=== PATIENT | male | born 1980 | race Caucasian/White ===

== ENCOUNTER 2019-10-23 10:28 | Emergency (ER) | payer OTHER ==
[~2019-10-23] VITALS: Ht 193 cm; Wt 118.2 kg
[2019-10-23] MEDS ORDERED: ONDANSETRON ODT 4 MG TAB.RAPDIS PO ONE (10:45)
--- NOTE | 2019-10-23 10:46 | PHYS DOC ---
Past History Past Medical History: No Pertinent History Past Surgical History: No Surgical History Alcohol Use: None Adult General Chief Complaint Chief Complaint: NAUSEA/VOMITING/DIARRHEA HPI HPI Patient is a 39 yo m p/w cc of nausea and dizzy He's had nausea and loose stool since Monday multiple kids at home are sick with similar symptoms. No fever that he knows of but did have some chills earlier in the week. He really thought that he would be better but he still having the symptoms we decided to come to the emergency room for evaluation. Return to try to eat something about 30 minutes later he has a bowel movement that's kind of loose at all bit runny. They just lightheaded has not passed out. No pain no chest pain no abdominal pain Review of Systems Review of Systems Constitutional: Eyes: Denies change in visual acuity, redness, or eye pain [] HENT: Denies nasal congestion or sore throat [] Respiratory: Denies cough or shortness of breath [] Cardiovascular: No additional information not addressed in HPI [] Neurologic: Denies headache, focal weakness or sensory changes [] Endocrine: Denies polyuria or polydipsia [] All other systems were reviewed and found to be within normal limits, except as documented in this note. Current Medications Current Medications Current Medications Medications (Trade) Dose Ordered Sig/Samuel Start Time Stop Time Status Last Admin Dose Admin Ondansetron HCl (Zofran Odt) 4 mg 1X ONCE 10/23/19 10:45 10/23/19 10:46 UNV Allergies Allergies Allergies Coded Allergies Type Severity Reaction Last Updated Verified No Known Drug Allergies 10/23/19 No Physical Exam Physical Exam Constitutional: Well developed, well nourished, no acute distress, non-toxic appearance. [] HENT: Normocephalic, atraumatic, bilateral external ears normal, oropharynx moist, no oral exudates, nose normal. [] Eyes: PERRLA, EOMI, conjunctiva normal, no discharge. [] Neck: Normal range of motion, no tenderness, supple, no stridor. [] Cardiovascular:Heart rate regular rhythm, no murmur [] Lungs & Thorax: Bilateral breath sounds clear to auscultation [] Abdomen: Bowel sounds normal, soft, no tenderness, no masses, no pulsatile masses. [] Skin: Warm, dry, no erythema, no rash. [] Back: No tenderness, no CVA tenderness. [] Extremities: No tenderness, no cyanosis, no clubbing, ROM intact, no edema. [] Neurologic: Alert and oriented X 3, normal motor function, normal sensory function, no focal deficits noted. [] Psychologic: Affect normal, judgement normal, mood normal. [] Current Patient Data Vital Signs Vital Signs Date Time Temp Pulse Resp B/P (MAP) Pulse Ox O2 Delivery O2 Flow Rate FiO2 10/23/19 10:40 98.1 76 18 185/85 (118) 95 Room Air Lab Results tress Level Triage * None Temperature (Fahrenheit): * 98.1 degrees F (97.6-99.5) Patient Temperature * 98.1 degrees F (97.5-99.5) Temperature Source * Oral Pulse Rate * 76 beats per minute (60-90) Respiratory Rate * 18 breaths per minute (12-24) Oxygen Delivery Method * Room Air Bedside Pulse Oximetry * 95 % Blood Pressure Assessment Label 185/85 * Mean 118 Blood Pressure Systolic * 185 mm Hg (100-140) H Blood Pressure Diastolic * 85 mm Hg (60-100) Height (Feet) * 6 feet Height (Inches) * 4.00 inches Patient Height * 76 in Weight (Kilograms) * 118.2 kg Patient Weight we will recheck the blood pressure with larger cuff. EKG EKG [] Radiology/Procedures Radiology/Procedures [] Course & Med Decision Making Course & Med Decision Making Pertinent Labs and Imaging studies reviewed. (See chart for details) []Labs look normal blood pressure was better on recheck patient remained stable in the emergency room and was discharged with a prescription for Zofran presumed diagnosis viral gastroenteritis given vomiting and loose stool. Return impressions discussed no abdominal pain Dragon Disclaimer Dragon Disclaimer This electronic medical record was generated, in whole or in part, using a voice recognition dictation system. Departure Departure: Impression: Primary Impression: Nausea Disposition: 01 HOME, SELF-CARE Condition: STABLE Referrals: FLAQUITO HICKS DO, [facility] (PCP) Scripts Ondansetron (ONDANSETRON ODT) 4 Mg Tab.rapdis 1 TAB PO PRN Q6-8HRS PRN for NAUSEA/VOMITING, #16 TAB Prov: JARRED FALL MD 10/23/19 JARRED FALL MD Oct 23, 2019 10:46
[2019-10-23 10:50] VITALS: BP 153/93
[2019-10-23 11:08] LABS: BASO % 1 % (0-3); EOS # 0.1 x10^3/uL (0.0-0.7); EOS % 2 % (0-3); HEMOGLOBIN 15.7 g/dL (13.0-17.5); LYMPH # 1.9 x10^3/uL (1.0-4.8); LYMPH % 26 % (24-48); MEAN CORPUSCULAR HEMOGLOBIN 30 pg (25-35); MEAN CORPUSCULAR HGB CONC 34 g/dL (31-37); MEAN CORPUSCULAR VOLUME 90 fL (79-100); MONO # 0.5 x10^3/uL (0.0-1.1); MONO % 7 % (0-9); NEUT # 4.9 x10^3uL (1.8-7.7); NEUT % 65 % (31-73); PLATELET COUNT 283 x10^3/uL (140-400); RED BLOOD COUNT 5.21 x10^6/uL (4.30-5.70); RED CELL DISTRIBUTION WIDTH 12.8 % (11.5-14.5); WHITE BLOOD COUNT 7.5 x10^3/uL (4.0-11.0)
[2019-10-23 11:12] LABS: INFLUENZA A PATIENT NEGATIVE (NEGATIVE); INFLUENZA B PATIENT NEGATIVE (NEGATIVE)
[2019-10-23 11:16] LABS: CALCIUM 8.9 mg/dL (8.5-10.1); CREATININE 0.9 mg/dL (0.7-1.3); GFR 93.9; POTASSIUM 4.1 mmol/L (3.5-5.1)
[2019-10-23 11:20] LABS: ALBUMIN 4.1 g/dL (3.4-5.0); ALBUMIN/GLOBULIN RATIO 1.1 (1.0-1.7); TOTAL BILIRUBIN 0.5 mg/dL (0.2-1.0); TOTAL PROTEIN 7.8 g/dL (6.4-8.2)
[2019-10-23] MEDS ORDERED: ONDA4TAB12 PO (11:24)
== END 2019-10-23 11:29 | disposition home or self-care (01) ==
LOC: ER 10:28
DX: R11.0 Nausea (principal); R42 Dizziness and giddiness
CPT/HCPCS: 36415; 80053; 83690; 85025; 87804; 99283; Q0162

== ENCOUNTER 2019-11-26 16:57 | Emergency (ER) | payer OTHER ==
[~2019-11-26] VITALS: Ht 193 cm; Wt 127.1 kg
[2019-11-26 16:57] VITALS: BP 141/89
[~2019-11-26 16:57] MED LIST: ONDA4TAB12 PO
--- NOTE | 2019-11-26 17:34 | PHYS DOC ---
Past History Past Medical History: No Pertinent History Past Surgical History: No Surgical History Alcohol Use: None Adult General Chief Complaint Chief Complaint: FLU SYMPTOM HPI HPI Patient is a 39-year-old male who presents with complaint of flulike illness for the last several days. Patient states that he has had body aches and chills as well as subjective fever. Patient also states that he has a dry cough and some shortness of breath. He reports some nausea but is had no vomiting or diarrhea. He rates the body aches as moderate.[] Review of Systems Review of Systems Constitutional: Positive subjective fever and chills [] Eyes: Denies change in visual acuity, redness, or eye pain [] HENT: Positive congestion without sore throat [] Respiratory: Complains of cough and shortness of breath [] Cardiovascular: No additional information not addressed in HPI [] Integument: Denies rash or skin lesions [] Neurologic: Admits to headache without focal weakness or sensory changes [] All other systems were reviewed and found to be within normal limits, except as documented in this note. Allergies Allergies Allergies Coded Allergies Type Severity Reaction Last Updated Verified No Known Drug Allergies 10/23/19 No Physical Exam Physical Exam Constitutional: Well developed, well nourished, no acute distress, non-toxic ap pearance. [] HENT: Normocephalic, atraumatic, bilateral external ears normal, oropharynx moist, mild pharyngeal erythema is noted without exudates. [] Eyes: PERRLA, EOMI, conjunctiva normal, no discharge. [] Neck: Normal range of motion, no tenderness, supple. [] Cardiovascular: Regular rate and rhythm[] Lungs & Thorax: Bilateral breath sounds clear to auscultation [] Abdomen: Bowel sounds normal, soft, no tenderness. [] Skin: Warm, dry, no erythema, no rash. [] Extremities: No tenderness, no cyanosis, no clubbing, ROM intact, no edema. [] Current Patient Data Vital Signs Vital Signs Date Time Temp Pulse Resp B/P (MAP) Pulse Ox O2 Delivery O2 Flow Rate FiO2 11/26/19 16:57 98.6 95 18 141/89 (106) 100 Room Air EKG EKG [] Radiology/Procedures Radiology/Procedures [] Impressions: PROCEDURE: CHEST PA & LATERAL Two-view chest dated 11/26/2019. No comparison available. CLINICAL INDICATION: Cough and fever. FINDINGS: PA and lateral views obtained. Heart and mediastinal contours are within normal limits. Lungs are clear. No consolidation or pleural effusion. No pneumothorax. IMPRESSION: No acute radiographic abnormality. Electronically signed by: Vijay Paige MD (11/26/2019 5:33 PM) [id number] Course & Med Decision Making Course & Med Decision Making Pertinent Labs and Imaging studies reviewed. (See chart for details) [] Dragon Disclaimer Dragon Disclaimer This electronic medical record was generated, in whole or in part, using a voice recognition dictation system. Departure Departure: Impression: Primary Impression: Acute bronchitis Disposition: HOME, SELF-CARE Condition: STABLE Referrals: FLAQUITO HICKS DO, [facility] (PCP) Patient Instructions: Acute Bronchitis Scripts Azithromycin (ZITHROMAX) 250 Mg Tablet 1 PKG PO UD for infection, #6 TAB Prov: THAIS FLORES Jr. DO 11/26/19 Problem Qualifiers Primary Impression: Acute bronchitis Bronchitis organism: unspecified organism Qualified Codes: J20.9 - Acute bronchitis, unspecified THAIS FLORES Jr. DO Nov 26, 2019 17:34
[2019-11-26 17:50] LABS: INFLUENZA A PATIENT NEGATIVE (NEGATIVE); INFLUENZA B PATIENT NEGATIVE (NEGATIVE)
[2019-11-26] MEDS ORDERED: AZIT250T PO (17:55)
== END 2019-11-26 18:05 | disposition home or self-care (01) ==
LOC: ER 16:57
DX: J20.9 Acute bronchitis, unspecified (principal)
CPT/HCPCS: 71046; 87804; 99284

== ENCOUNTER 2019-11-28 22:53 | Emergency (ER) | payer OTHER ==
[~2019-11-28] VITALS: Ht 193 cm; Wt 127.1 kg
[~2019-11-28 22:53] MED LIST changes: +AZIT250T PO
--- NOTE | 2019-11-28 23:12 | PHYS DOC ---
Past History Past Medical History: No Pertinent History Past Surgical History: No Surgical History Alcohol Use: None Adult General Chief Complaint Chief Complaint: "... I ve been sick since monday... And Fever like and a Nonproductive Cough, Generalized Aches and Pain... But has doing pretty good Monday I even ran 6 miles... I was seen at [facility] and they started me on his Zithromax.... I haven't been outside the state overseas recently... I have been around people that have traveled TD to [place] but they are not sick HPI HPI Patient is a 39 year old male who presents with above hx and complaints of fev er, chills, malaise, arthralgia, myalgia, nonproductive cough, sore throat and congestion. Patient was given Zithromax course at [facility]. Patient states he had no improvement. Patient denies any history immunosuppression. Patient denies any travel. Patient denies any specific ill contacts. Has been in contact with individual who have traveled [facility] to [place] by [employer]. They had come to visit on approximately November 15. Visitors have no symptoms. Pt. does have similar flu like symptoms as pt. Both Pt. and were told to self isolate by [facility]. Patient did get flu vaccination this season.. Patient states he's been compliant with his Zithromax. Review of Systems Review of Systems Constitutional: Denies fever or chills [] Eyes: Denies change in visual acuity, redness, or eye pain [] HENT: Denies nasal congestion or sore throat [] Respiratory: Denies cough or shortness of breath [] Cardiovascular: No additional information not addressed in HPI [] GI: Denies abdominal pain, nausea, vomiting, bloody stools or diarrhea [] : Denies dysuria or hematuria [] Musculoskeletal: Denies back pain or joint pain [] Integument: Denies rash or skin lesions [] Neurologic: Denies headache, focal weakness or sensory changes [] Endocrine: Denies polyuria or polydipsia [] All other systems were reviewed and found to be within normal limits, except as documented in this note. Family History Family History has same symptoms Current Medications Current Medications See nursing for home meds Allergies Allergies Allergies Coded Allergies Type Severity Reaction Last Updated Verified No Known Drug Allergies 10/23/19 No Physical Exam Physical Exam Constitutional: Well developed, well nourished, reports moderate acute distress, non-toxic appearance. [] HENT: Normocephalic, atraumatic, bilateral external ears normal, oropharynx moist, no oral exudates, nose normal. [] Eyes: PERRLA, EOMI, conjunctiva normal, no discharge. [] Neck: Normal range of motion, no tenderness, supple, no stridor. [] Cardiovascular:Heart rate regular rhythm, no murmur [] Lungs & Thorax: Bilateral breath sounds with apex with few scattered wheezes on auscultation [] Abdomen: Bowel sounds normal, soft, no tenderness, no masses, no pulsatile masses. [] Skin: Warm, dry, no erythema, no rash. [] Back: No tenderness, no CVA tenderness. [] Extremities: No tenderness, no cyanosis, no clubbing, ROM intact, no edema. []No cording in legs Neurologic: Alert and oriented X 3, normal motor function, normal sensory function, no focal deficits noted. [] Psychologic: Affect anxious, judgement normal, mood normal. [] EKG EKG My interpretation EKG shows a sinus rhythm at 82 bpm. No findings acute STEMI with contralateral changes.[] Radiology/Procedures Radiology/Procedures [][place] [address] IMAGING REPORT Signed PATIENT: RUFINO CARDENAS ACCOUNT: [id number] : 1980 LOCATION: ER AGE: 39 SEX: M EXAM STATUS: PRE ER ORD. PHYSICIAN: REVA RIOS MD REASON: Dyspnea, cough, chest pressure PROCEDURE: CHEST PA & LATERAL Two-view chest dated 11/28/2019. Comparison made to 11/26/2019. CLINICAL INDICATION: Dyspnea and cough. FINDINGS: PA and lateral views obtained. Heart and mediastinal contours within normal limits. Lungs are clear. No consolidation or pleural effusion. No pneumothorax. IMPRESSION: No acute findings. Electronically signed by: Vijay Paige MD (11/28/2019 11:41 PM) [id number] DICTATED AND SIGNED BY: VIJAY PAIGE MD DATE: 11/28/19 0572 CC: REVA RIOS MD; FLAQU[facility] HICKS DO, [facility] ~ Course & Med Decision Making Course & Med Decision Making Pertinent Labs and Imaging studies reviewed. (See chart for details) Pt. to continue current Zithromax as directed. Use MDI two puffs four times a day . Take Prednisone 50 mg daily. Self isolated your self and close contacts ( family x 14 day) if contacts are high risks. Check CDC site for latest information on high risk areas because of concern for CO-19. Most areas in [place] high risk s areas were after 11/24/2019. Over seas Level #3 and above also since November 23, except [place] and [facility] area or Level #2. Follow up with Jerry. Return if any concerns. Impression: 1. Bronchitis 2. Viral Syndrome. [] Dragon Disclaimer Dragon Disclaimer This electronic medical record was generated, in whole or in part, using a voice recognition dictation system. Departure Departure: Disposition: 01 HOME/RESIDENCE PRIOR TO ADM Condition: STABLE Referrals: FLAQUITO HICKS DO, [facility] (PCP) Scripts Ondansetron Hcl (ZOFRAN) 8 Mg Tablet 8 MG PO QIDPRN PRN for active vomiting, #30 BOTTLE Prov: REVA RIOS MD 11/29/19 Ibuprofen (IBUPROFEN) 400 Mg Tablet 600 MG PO QIDPRN PRN for pain or fever, #120 TAB Prov: REVA RIOS MD 11/29/19 Acetaminophen (ACETAMINOPHEN) 500 Mg Tablet 1000 MG PO QIDPRN for fever or pain, #120 TAB Prov: REVA RIOS MD 11/29/19 Albuterol Sulfate (VENTOLIN HFA INHALER) 18 Gm Hfa.aer.ad 2 PUFF IH PRN Q4HRS PRN for FOR ASTHMA for 30 Days, INHALER 0 Refills Prov: REVA RIOS MD 11/29/19 Prednisone (PREDNISONE) 50 Mg Tablet 50 MG PO DAILY for reactive airway for 5 Days, #5 TAB Prov: REVA RIOS MD 11/29/19 Dragon Disclaimer This chart was dictated in whole or in part using Voice Recognition software in a busy, high-work load, and often noisy Emergency Department environment. It may contain unintended and wholly unrecognized errors or omissions. REVA RIOS MD Nov 28, 2019 23:12
[2019-11-28] MEDS ORDERED: IV RINGERS SOLUTION,LACTATED 1,000 ML IV SCH (23:15)
[2019-11-28] MEDS ORDERED: IPRATRPIUM/ALBUTEROL 0.5/2.5MG 3 ML NEBU. NEB ONE (23:30)
[2019-11-28] MEDS ORDERED: predniSONE 10 MG TABLET PO ONE (23:30)
--- NOTE | 2019-11-28 23:44 | RAD ---
Two-view chest dated 11/28/2019. Comparison made to 11/26/2019. CLINICAL INDICATION: Dyspnea and cough. FINDINGS: PA and lateral views obtained. Heart and mediastinal contours within normal limits. Lungs are clear. No consolidation or pleural effusion. No pneumothorax. IMPRESSION: No acute findings. Electronically signed by: Vijay Paige MD (11/28/2019 11:41 PM) [id number]
--- NOTE | 2019-11-28 23:47 | EKG ---
[address] [address] Test Date: 2019-11-28 Test Time: 23:33:57 Pat Name: RUFINO CARDENAS Department: Room: Gender: M [id number]: : 1980 Requested By: REVA RIOS Order Number: [id number] Reading MD: Measurements Intervals [place] Rate: 82 P: 48 [place]: 174 QRS: 54 QRSD: 92 T: 22 QT: 352 QTc: 414 Interpretive Statements SINUS RHYTHM NO SPECIFIC ECG ABNORMALITIES RI6.01 No previous ECG available for comparison
[2019-11-29 00:15] LABS: BASO # 0.1 x10^3/uL (0.0-0.2); BASO % 1 % (0-3); EOS # 0.1 x10^3/uL (0.0-0.7); EOS % 1 % (0-3); HEMATOCRIT 45.7 % (39.0-53.0); HEMOGLOBIN 15.5 g/dL (13.0-17.5); LYMPH # 1.7 x10^3/uL (1.0-4.8); LYMPH % 15 % (24-48); MEAN CORPUSCULAR HEMOGLOBIN 30 pg (25-35); MEAN CORPUSCULAR HGB CONC 34 g/dL (31-37); MEAN CORPUSCULAR VOLUME 90 fL (79-100); MONO # 0.7 x10^3/uL (0.0-1.1); MONO % 7 % (0-9); NEUT # 8.7 x10^3uL (1.8-7.7); NEUT % 77 % (31-73); PLATELET COUNT 258 x10^3/uL (140-400); RED BLOOD COUNT 5.09 x10^6/uL (4.30-5.70); RED CELL DISTRIBUTION WIDTH 12.6 % (11.5-14.5); WHITE BLOOD COUNT 11.3 x10^3/uL (4.0-11.0)
[2019-11-29 00:24] LABS: CREATININE 1.1 mg/dL (0.7-1.3); GFR 74.5; POTASSIUM 3.9 mmol/L (3.5-5.1)
[2019-11-29 00:32] LABS: INFLUENZA A PATIENT NEGATIVE (NEGATIVE); INFLUENZA B PATIENT NEGATIVE (NEGATIVE)
[2019-11-29 00:36] LABS: ALBUMIN 4.2 g/dL (3.4-5.0); DIRECT BILIRUBIN 0.1 mg/dL (0.0-0.2); MAGNESIUM 2.3 mg/dL (1.8-2.4); TOTAL BILIRUBIN 0.3 mg/dL (0.2-1.0); TOTAL PROTEIN 8.1 g/dL (6.4-8.2)
[2019-11-29 01:10] LABS: BACTERIA,URINE 0 /HPF (0-FEW); BILIRUBIN,URINE NEG (NEG); CLARITY,URINE CLEAR; COLOR,URINE YELLOW; GLUCOSE,URINE NEG (NEG); NITRITE,URINE NEG (NEG); RBC,URINE 0 /HPF (0-2); UROBILINOGEN,URINE 0.2 mg/dL (0.2 mg/dL); WBC,URINE 0 /HPF (0-4)
[2019-11-29 01:28] LABS: SEDIMENTATION RATE 5 (0-15)
[2019-11-29] MEDS ORDERED: ACET500T68 PO (02:20)
[2019-11-29] MEDS ORDERED: IBUP400T18 PO (02:20)
[2019-11-29] MEDS ORDERED: ALBU2.5V8 IH (02:20)
[2019-11-29] MEDS ORDERED: ONDA8TAB9 PO (02:20)
[2019-11-29] MEDS ORDERED: PRED50TA PO (02:20)
[2019-11-29 02:32] LABS: BGAS PH 7.43 (7.35-7.46)
[2019-11-29 02:45] VITALS: BP 142/76
== END 2019-11-29 03:31 | disposition home or self-care (01) ==
LOC: ER 22:53
DX: B34.9 Viral infection, unspecified (principal); J40 Bronchitis, not specified as acute or chronic
CPT/HCPCS: 36415; 36600; 71046; 80048; 80076; 81001; 82550; 82803; 83605; 83735; 83880; 84484; 85025; 85379; 85610; 85651; 85730; 87040; 87070; 87804; 87880; 93005; 94640; 99285; J7120; J7512

== ENCOUNTER 2019-12-01 20:26 | Emergency (ER) | payer OTHER ==
[~2019-12-01] VITALS: Ht 193 cm; Wt 127.1 kg
[~2019-12-01 20:26] MED LIST changes: +ACET500T68 PO; +ALBU2.5V8 IH; +IBUP400T18 PO; +ONDA8TAB9 PO; +PRED50TA PO
--- NOTE | 2019-12-01 20:33 | PHYS DOC ---
Past History Past Medical History: Bronchitis Past Surgical History: No Surgical History Alcohol Use: None Adult General Chief Complaint Chief Complaint: ".. . My and I were doing good... I really felt better today.. but tonight ... I feel short of breath again... " HPI HPI Patient is a 39 year old male who presents with above hx and complaints of dyspnea, nonproductive cough, sore throat, congestion, malaise, myalgia and arthralgia. Pt. seen in ED 10/23, 11/25 and 11/27 for bronchitis and viral symptoms. Pt. has been on a course of Zithromax , Prednisone and MDI albuterol. . Was doing fairly well and even ran 6 mile run on MondayNovember 24. Pt. Seen by me on 11/27- for dyspnea, cough, and felt to have a Viral Bronchitis. Pt. does have some possible remote risks of CO-19 with individual visiting who were TDY to [place] via [place]. has same symptoms. Review of Systems Review of Systems Constitutional: Denies fever or chills [] Eyes: Denies change in visual acuity, redness, or eye pain [] HENT: Denies nasal congestion or sore throat [] Respiratory: Complaints of cough and shortness of breath [] Cardiovascular: No additional information not addressed in HPI [] GI: Denies abdominal pain, nausea, vomiting, bloody stools or diarrhea [] : Denies dysuria or hematuria [] Musculoskeletal: Complaints of myalgia and malaise Integument: Denies rash or skin lesions [] Neurologic: Denies headache, focal weakness or sensory changes [] Endocrine: Denies polyuria or polydipsia [] All other systems were reviewed and found to be within normal limits, except as documented in this note. Family History Family History has same symptoms Current Medications Current Medications See nursing for home meds Allergies Allergies Allergies Coded Allergies Type Severity Reaction Last Updated Verified No Known Drug Allergies 10/23/19 No Physical Exam Physical Exam Constitutional: Well developed, well nourished, mild distress, non-toxic appearance. [] HENT: Normocephalic, atraumatic, bilateral external ears normal, oropharynx moist, no oral exudates, nose normal. [] Eyes: PERRLA, EOMI, conjunctiva normal, no discharge. [] Neck: Normal range of motion, no tenderness, supple, no stridor. [] Cardiovascular:Heart rate regular rhythm, no murmur [] Lungs & Thorax: Bilateral breath sounds equal at apex with very few scattered wheezes auscultation [] Abdomen: Bowel sounds normal, soft, no tenderness, no masses, no pulsatile masses. [] Skin: Warm, dry, no erythema, no rash. [] Back: No tenderness, no CVA tenderness. [] Extremities: No tenderness, no cyanosis, no clubbing, ROM intact, no edema. [] Neurologic: Alert and oriented X 3, normal motor function, normal sensory function, no focal deficits noted. [] Psychologic: Affect anxious, judgement normal, mood normal. [] EKG EKG My interpretation of EKG shows a sinus rhythm at 86 bpm. There is some movement artifact. But no findings acute STEMI of contralateral changes.[] Radiology/Procedures Radiology/Procedures [][place] [address] IMAGING REPORT Signed PATIENT: RUFINO CARDENAS ACCOUNT: [id number] : 1980 LOCATION: ER AGE: 39 SEX: M EXAM STATUS: REG ER ORD. PHYSICIAN: REVA RIOS MD REASON: dyspnea PROCEDURE: CHEST PA & LATERAL Exam: Chest 2 views INDICATION: Dyspnea TECHNIQUE: Frontal and lateral views the chest Comparisons: 11/28/2019 FINDINGS: The cardiomediastinal silhouette and pulmonary vessels are within normal limits. The lung and pleural spaces are clear. IMPRESSION: No acute cardiopulmonary process. Electronically signed by: Adrian Snow MD (12/01/2019 9:07 PM) [id number] DICTATED AND SIGNED BY: ADRIAN SNOW MD DATE: 12/01/19 2107 CC: REVA RIOS MD; FLAQUITO HICKS DO, [facility] ~ Course & Med Decision Making Course & Med Decision Making Pertinent Labs and Imaging studies reviewed. (See chart for details) Patient continue current meds. Patient continue MDI 2 puffs 4 times a day. Patient continue self isolation x 15 days. Patient follow-up primary care. Patient return if any concerns. Patient take Tylenol and ibuprofen as needed for discomfort. Impression- 1. Viral syndrome 2. Bronchitis [] Dragon Disclaimer Dragon Disclaimer This electronic medical record was generated, in whole or in part, using a voice recognition dictation system. Departure Departure: Disposition: 01 HOME/RESIDENCE PRIOR TO ADM Condition: STABLE Referrals: FLAQUITO HICKS DO, [facility] (PCP) Maggie Disclaimer This chart was dictated in whole or in part using Voice Recognition software in a busy, high-work load, and often noisy Emergency Department environment. It may contain unintended and wholly unrecognized errors or omissions. Dragon Disclaimer This chart was dictated in whole or in part using Voice Recognition software in a busy, high-work load, and often noisy Emergency Department environment. It may contain unintended and wholly unrecognized errors or omissions. REVA RIOS MD Dec 01, 2019 20:33
[2019-12-01] MEDS ORDERED: IV RINGERS SOLUTION,LACTATED 1,000 ML IV SCH (20:34)
[2019-12-01] MEDS ORDERED: ASPIRIN 81 MG TAB.CHEW PO ONE (20:45)
[2019-12-01] MEDS ORDERED: IPRATRPIUM/ALBUTEROL 0.5/2.5MG 3 ML NEBU. NEB ONE ×2 (20:45)
[2019-12-01 21:06] LABS: BASO % 0 % (0-3); EOS % 0 % (0-3); HEMATOCRIT 43.3 % (39.0-53.0); HEMOGLOBIN 14.6 g/dL (13.0-17.5); LYMPH # 1.2 x10^3/uL (1.0-4.8); LYMPH % 11 % (24-48); MEAN CORPUSCULAR HEMOGLOBIN 31 pg (25-35); MEAN CORPUSCULAR HGB CONC 34 g/dL (31-37); MEAN CORPUSCULAR VOLUME 91 fL (79-100); MONO # 0.3 x10^3/uL (0.0-1.1); MONO % 3 % (0-9); NEUT % 86 % (31-73); PLATELET COUNT 277 x10^3/uL (140-400); RED BLOOD COUNT 4.79 x10^6/uL (4.30-5.70); RED CELL DISTRIBUTION WIDTH 12.7 % (11.5-14.5); WHITE BLOOD COUNT 10.6 x10^3/uL (4.0-11.0)
--- NOTE | 2019-12-01 21:10 | RAD ---
Exam: Chest 2 views INDICATION: Dyspnea TECHNIQUE: Frontal and lateral views the chest Comparisons: 11/28/2019 FINDINGS: The cardiomediastinal silhouette and pulmonary vessels are within normal limits. The lung and pleural spaces are clear. IMPRESSION: No acute cardiopulmonary process. Electronically signed by: Adrian Deutsch MD (12/01/2019 9:07 PM) [id number]
[2019-12-01 21:11] LABS: CALCIUM 8.8 mg/dL (8.5-10.1); CREATININE 0.9 mg/dL (0.7-1.3); GFR 93.9; POTASSIUM 3.8 mmol/L (3.5-5.1)
[2019-12-01 21:24] LABS: ALBUMIN 4.1 g/dL (3.4-5.0); DIRECT BILIRUBIN 0.1 mg/dL (0.0-0.2); MAGNESIUM 2.2 mg/dL (1.8-2.4); TOTAL BILIRUBIN 0.4 mg/dL (0.2-1.0); TOTAL PROTEIN 7.8 g/dL (6.4-8.2)
[2019-12-01 21:25] LABS: BGAS PH 7.37 (7.35-7.46)
[2019-12-01 22:02] LABS: INFLUENZA A PATIENT NEGATIVE (NEGATIVE); INFLUENZA B PATIENT NEGATIVE (NEGATIVE)
[2019-12-01 22:30] VITALS: BP 142/84
[2019-12-01 22:30] LABS: BARBITURATES NEG (NEG); BENZODIAZEPINES NEG (NEG); CANNABINOIDS NEG (NEG); COCAINE NEG (NEG); METHADONE NEG (NEG); OPIATES NEG (NEG); PHENCYCLIDINE NEG (NEG)
[2019-12-01 22:33] LABS: BACTERIA,URINE 0 /HPF (0-FEW); BILIRUBIN,URINE NEG (NEG); CLARITY,URINE CLEAR; COLOR,URINE STRAW; GLUCOSE,URINE NEG (NEG); NITRITE,URINE NEG (NEG); RBC,URINE 0 /HPF (0-2); SQUAMOUS EPITHELIAL CELL,UR OCC /LPF; UROBILINOGEN,URINE 0.2 mg/dL (0.2 mg/dL); WBC,URINE OCC /HPF (0-4)
[2019-12-01 22:35] LABS: AMPHETAMINE/METHAMPHETAMINE NEG (NEG)
[2019-12-02 15:52] LABS: THYROID STIM HORMONE (TSH) 0.63 uIU/mL (0.358-3.740)
== END 2019-12-01 22:39 | disposition home or self-care (01) ==
LOC: ER 20:26
DX: B34.9 Viral infection, unspecified (principal); J40 Bronchitis, not specified as acute or chronic
CPT/HCPCS: 36415; 71046; 80048; 80061; 80076; 80307; 81001; 82550; 82803; 83690; 83735; 83880; 84443; 84484; 85025; 85379; 85610; 85730; 87070; 87804; 87880; 93005; 94640; 99285; J7120